=== PATIENT | female | born 1975 | race Caucasian/White ===

== ENCOUNTER 2021-04-28 08:19 | Emergency (ER) | payer OTHER ==
[~2021-04-28] VITALS: Ht 165.1 cm; Wt 97.5 kg
[2021-04-28] MEDS ORDERED: SIMVASTATIN80 MG PO (08:30)
[2021-04-28] MEDS ORDERED: XARELTO10 M1 PO (08:30)
[2021-04-28] MEDS ORDERED: LEXAPRO 10 MG T10 MG PO (08:30)
[2021-04-28] MEDS ORDERED: HYDROCODON-ACE1 EAC7 PO (10:12)
[2021-04-28 10:15] VITALS: BP 128/75
== END 2021-04-28 10:15 | disposition home or self-care (01) ==
LOC: M.ERS 08:19
DX: M25.562 Pain in left knee (principal); Z88.0 Allergy status to penicillin; Z86.718 Personal history of other venous thrombosis and embolism